=== PATIENT | male | born 1945 | race Caucasian/White ===

== ENCOUNTER 2016-06-05 11:48 | Outpatient (CLI) | payer MEDICARE, BC | END 2016-06-05 11:49 | disposition home or self-care (01) | LOC: NAVSJIPCSP 11:48 | PROVIDERS: ATTEND Internal Medicine | DX: Z51.81 Encounter for therapeutic drug level monitoring (principal); Z79.899 Other long term (current) drug therapy | CPT/HCPCS: 36415; 80061 ==

== ENCOUNTER 2016-06-07 08:35 | Outpatient (CLI) | payer MEDICARE, BC | END 2016-06-07 08:36 | LOC: NAVSJIPCSP 08:35 | PROVIDERS: ATTEND Internal Medicine | DX: E29.1 Testicular hypofunction (principal) | CPT/HCPCS: 36415; 84403 ==

== ENCOUNTER 2016-09-11 09:30 | Outpatient (CLI) | payer MEDICARE, BC ==
[2016-09-11 12:59] LABS: Cardiac Risk 2.3 (Less than 4.5)
== END 2016-09-11 09:31 ==
LOC: NAVSJIPCSP 09:30
PROVIDERS: ATTEND Internal Medicine
DX: E78.5 Hyperlipidemia, unspecified (principal); Z79.899 Other long term (current) drug therapy
CPT/HCPCS: 36415; 80061